=== PATIENT | female | born 1960 | race Caucasian/White ===

== ENCOUNTER 2016-06-29 03:23 | Emergency (ER) | payer BC ==
[~2016-06-29] VITALS: Ht 172.7 cm; Wt 100.0 kg
[~2016-06-29 03:23] MED LIST: ALEVE 220MG220 MG PO; AMITRIPTYLINE H10 M1 PO; ESTROVEN; LANTUS SOLOS100 U/ML SC; LEVAQUIN 750MG750 M1 PO; LIPITOR 10MG10 MG PO; LIPITOR 40MG TA40 MG PO; NOVOLOG FLEX100 U/ML SC; PEPCID 20MG TAB20 MG PO; PRINIVIL20 MG PO; PRINIVIL40 MG PO; TAPAZOLE10 MG PO
[2016-06-29 03:27] VITALS: TEMP 98.3
[2016-06-29 03:51] LABS: BASO # 0.1 (0.0-0.2); BASO % 0.8 % (0.0-2.0); EOS # 0.2 (0.0-0.7); EOS % 2.2 % (0-4.0); GRAN # 4.5 (1.4-6.5); GRAN % 59.6 % (42.2-75.2); HEMATOCRIT 38.4 % (37.0-47.0); HEMOGLOBIN 12.1 g/dl (12.5-16.0); LYMPH # 2.2 (1.2-3.4); LYMPH % 29.6 % (20.0-51.0); MEAN CELL VOLUME 88 fl (80.0-100.0); MEAN CORPUSCULAR HEMOGLOBIN 28 pg (27.0-31.0); MEAN CORPUSCULAR HGB CONC 32 g/dl (33.0-37.0); MONO # 0.6 (0.1-0.6); MONO % 7.5 % (1.7-9.3); PLATELET COUNT 219 K/mm3 (130-400); RED BLOOD COUNT 4.36 M/mm3 (4.10-5.30); REDCELL DISTRIBUTION WIDTH-CV 14.2 % (11.5-14.5); WHITE BLOOD COUNT 7.6 K/mm3 (4.8-10.8)
[2016-06-29 04:01] LABS: ADJUSTED CALCIUM 9.3 mg/dL (8.4-10.2); ALANINE AMINOTRANSFERASE 40 U/L (9-52); ALBUMIN 3.6 gm/dL (3.5-5.0); ALKALINE PHOSPHATASE 143 U/L (50-136); ANION GAP 9 mmol/L (7-16); BILIRUBIN,TOTAL 0.5 mg/dL (0.0-1.0); BLOOD UREA NITROGEN 16 mg/dL (7-17); CARBON DIOXIDE 29 mmol/L (22-30); CHLORIDE 101 mmol/L (98-107); CREATININE, serum 0.94 mg/dL (0.52-1.25); GLUCOSE 264 mg/dL (74-106); POTASSIUM 3.6 mmol/L (3.4-5.0); SODIUM 139 mmol/L (137-145)
[2016-06-29 04:12] LABS: TROPONIN-I < 0.012 ng/mL (0.000-0.034)
[2016-06-29 05:24] VITALS: BP 165/95; PULSE 65
[2016-06-29] MEDS ORDERED: NORCO 325 MG-7.1 TAB PO (05:27)
== END 2016-06-29 05:35 | disposition home or self-care (01) ==
LOC: COL.ER 03:23
PROVIDERS: Emergency Medicine
DX: M79.622 Pain in left upper arm (principal); M79.632 Pain in left forearm; E11.9 Type 2 diabetes mellitus without complications; I10 Essential (primary) hypertension; M79.7 Fibromyalgia; Z79.4 Long term (current) use of insulin
CPT/HCPCS: J1885